=== PATIENT | female | born 1935 | race Caucasian/White ===

== ENCOUNTER 2018-04-18 07:32 | Day surgery (SDC) | payer OTHER ==
[~2018-04-18] VITALS: Ht 162.6 cm; Wt 61.7 kg
[~2018-04-18 07:32] MED LIST: ACET500 PO; CETI5 PO; CHOL10002 PO; DOCU100 PO; ELIQUIS2.5 MG PO; ELIQUIS5 MG PO; GAVILAX17 GM PO; MAGNESIUM; METO25 PO; Magnesium Gluc500 MG PO; Metamucil Smooth1 EA PO; PROBIOTIC1 EAC1; PROBIOTIC1 EAC2 PO; Pyridium100 MG
[2018-04-19 04:51] LABS: BASOPHILS ABSOLUTE AUTO 0.01 K/mm3 (0.00-0.23); BASOPHILS PERCENT AUTO 0 % (0-2); EOSINOPHILS PERCENT AUTO 0 % (0-6); Hematocrit 36.7 % (33.0-51.0); Hemoglobin 12.2 g/dL (11.5-16.0); IMMATURE GRAN ABSOLUTE AUTO 0.08 K/mm3 (0.00-0.10); IMMATURE GRAN PERCENT AUTO 1 % (0-1); LYMPHOCYTES ABSOLUTE AUTO 0.88 K/mm3 (0.84-5.20); LYMPHOCYTES PERCENT AUTO 6 % (21-46); MONOCYTES ABSOLUTE AUTO 0.83 K/mm3 (0.16-1.47); MONOCYTES PERCENT AUTO 6 % (4-13); Mean Corpuscular HGB 30.6 pg (26.0-34.0); Mean Corpuscular HGB Conc 33.2 g/dL (31.5-36.5); Mean Platelet Volume 10.9 fL (9.1-12.4); NEUTROPHILS ABSOLUTE AUTO 12.94 K/mm3 (1.96-9.15); NEUTROPHILS PERCENT AUTO 88 % (41-73); Platelet Count 225 K/mm3 (150-400); RDW Coefficient Variation 12.3 % (11.7-14.2); RDW Standard Deviation 41.1 fL (35.1-46.3); Red Blood Cell Count 3.99 M/mm3 (3.80-5.20); White Blood Cell Count 14.74 K/mm3 (4.00-11.30)
[2018-04-19 05:00] LABS: Mean Corpuscular Volume 92 fL (80-100)
[2018-04-19] MEDS ORDERED: Colace100 MG PO (08:12)
== END 2018-04-19 09:56 | disposition home or self-care (01) ==
LOC: ORSCMMR 07:32 → ORD 08:45 → SURS 10:25 → ORSCMMR 04-19 09:56
PROVIDERS: Obstetrics & Gynecology
PROC: 0JQC0ZZ Repair Pelvic Region Subcutaneous Tissue and Fascia, Open Approach (ICD-10-PCS; principal; 2018-04-18 08:45)
PROC: 0UQF7ZZ Repair Cul-de-sac, Via Natural or Artificial Opening (ICD-10-PCS; principal; 2018-04-18 08:45)
DX: N81.6 Rectocele (principal); N81.5 Vaginal enterocele; I48.91 Unspecified atrial fibrillation; Z79.899 Other long term (current) drug therapy
CPT/HCPCS: 36415; 85025; J0171; J0690; J1100; J1885; J2001; J2250; J2405; J3010; J7120

== ENCOUNTER → 2018-05-05 | Outpatient (CLI) | payer OTHER ==
[~2018-05-05] MED LIST changes: +Colace100 MG PO
[2018-05-06 11:23] LABS: Candida species (DNA Probe) Negative (NEGATIVE); G. vaginalis (DNA Probe) Negative (NEGATIVE); T. vaginalis (DNA Probe) Negative (NEGATIVE)
== END | disposition home or self-care (01) ==
LOC: LAB 18:09 → LAB SHORT 18:09
PROVIDERS: Obstetrics & Gynecology
DX: N76.0 Acute vaginitis (principal)
CPT/HCPCS: 87480; 87510; 87660

== ENCOUNTER → 2019-04-11 | Outpatient (CLI) | payer OTHER | END | disposition home or self-care (01) | LOC: LAB SHORT 09:56 → PLD 09:56 | DX: L82.1 Other seborrheic keratosis (principal) | CPT/HCPCS: 88305 ==

== ENCOUNTER → 2019-05-08 | Outpatient (CLI) | payer OTHER | LOC: LAB 11:12 → LAB SHORT 11:12 | DX: N76.0 Acute vaginitis (principal) | CPT/HCPCS: 87070; 87077; 87186; 87205 ==

== ENCOUNTER → 2019-05-24 | Outpatient (CLI) | payer OTHER | END | disposition home or self-care (01) | LOC: LAB 08:47 → LAB SHORT 08:47 | DX: N76.0 Acute vaginitis (principal) | CPT/HCPCS: 87070; 87077; 87186; 87205 ==

== ENCOUNTER → 2019-07-07 | Outpatient (CLI) | payer OTHER | END | disposition home or self-care (01) | LOC: LAB SHORT 12:39 → LAB 12:39 | DX: N76.0 Acute vaginitis (principal) | CPT/HCPCS: 87070; 87205 ==

== ENCOUNTER → 2019-09-06 | Outpatient (CLI) | payer OTHER | END | disposition home or self-care (01) | LOC: LAB SHORT 16:20 → LAB 16:20 | DX: N76.1 Subacute and chronic vaginitis (principal) | CPT/HCPCS: 87070; 87205 ==

== ENCOUNTER → 2021-04-01 | Outpatient (CLI) | payer MEDICARE ==
[2021-04-02 12:05] LABS: Candida species (DNA Probe) Negative (NEGATIVE); G. vaginalis (DNA Probe) Negative (NEGATIVE); T. vaginalis (DNA Probe) Negative (NEGATIVE)
== END ==
LOC: LAB 11:36 → LAB SHORT 11:36
PROVIDERS: Obstetrics & Gynecology
DX: N76.1 Subacute and chronic vaginitis (principal); Z88.0 Allergy status to penicillin; Z88.2 Allergy status to sulfonamides; Z88.8 Allergy status to other drugs, medicaments and biological substances
CPT/HCPCS: 87070; 87077; 87186; 87205; 87480; 87510; 87660

== ENCOUNTER 2022-09-17 17:02 | Emergency (ER) | payer MEDICARE ==
[~2022-09-17] VITALS: Ht 162.6 cm; Wt 57.6 kg
[2022-09-17 17:55] LABS: BASOPHILS ABSOLUTE AUTO 0.04 K/mm3 (0.00-0.23); BASOPHILS PERCENT AUTO 0 % (0-2); EOSINOPHILS PERCENT AUTO 0 % (0-6); Hematocrit 46.7 % (33.0-51.0); Hemoglobin 15.4 g/dL (11.5-16.0); IMMATURE GRAN ABSOLUTE AUTO 0.04 K/mm3 (0.00-0.10); IMMATURE GRAN PERCENT AUTO 0 % (0-1); LYMPHOCYTES ABSOLUTE AUTO 1.19 K/mm3 (0.84-5.20); LYMPHOCYTES PERCENT AUTO 8 % (21-46); MONOCYTES ABSOLUTE AUTO 1.47 K/mm3 (0.16-1.47); MONOCYTES PERCENT AUTO 10 % (4-13); Mean Corpuscular HGB 30.6 pg (26.0-34.0); Mean Corpuscular Volume 93 fL (80-100); Mean Platelet Volume 10.5 fL (9.1-12.4); NEUTROPHILS ABSOLUTE AUTO 11.42 K/mm3 (1.96-9.15); NEUTROPHILS PERCENT AUTO 81 % (41-73); Platelet Count 268 K/mm3 (150-400); RDW Coefficient Variation 12.4 % (11.7-14.2); RDW Standard Deviation 42.7 fL (35.1-46.3); Red Blood Cell Count 5.03 M/mm3 (3.80-5.20); White Blood Cell Count 14.16 K/mm3 (4.00-11.30)
[2022-09-17 18:42] LABS: Albumin, Blood 3.2 g/dL (3.4-5.0); Albumin/Globulin Ratio 0.8 (0.8-1.8); Bilirubin, Total 0.9 mg/dL (0.1-1.0); Bun/Creatinine Ratio 28.8 (12.0-20.0); Calcium, Blood 9.8 mg/dL (8.5-10.1); Creatinine, Blood 0.76 mg/dL (0.40-1.00); Magnesium, Blood 2.3 mg/dL (1.6-2.4); Potassium, Blood 4.1 mmol/L (3.5-5.5); Total Protein, Blood 7.2 g/dL (6.4-8.2)
[2022-09-17 22:54] LABS: Source, Urine Clean Catch
[2022-09-17 22:59] LABS: Bilirubin, Urine Neg (Neg); Blood, Urine 1+ (Neg); Glucose Qualitative, Urine Neg (Neg); Ketones, Urine 3+ (Neg); Leukocyte Esterase, Urine Neg (Neg); Nitrite, Urine Neg (Neg); Protein, Urine 1+ (Neg); Urobilinogen, Urine NORM (Normal)
[2022-09-17] MEDS ORDERED: BETAPACE AF PO (23:00)
[2022-09-17] MEDS ORDERED: DILTIAZEM 24HR120 M4 PO (23:01)
[2022-09-17 23:28] LABS: Appearance, Urine Clear (Clear); Color, Urine Yellow (P-Yellow); Red Blood Cells, Urine 0-2 /hpf (0-2); White Blood Cells, Urine 0-2 /hpf (0-5)
[2022-09-17 23:29] LABS: Amorphous Light (0-Heavy); Bacteria Few /hpf; Mucus Mod (0-Heavy); Squamous Epithelial Cells Few /hpf (Few)
[2022-09-18] MEDS ORDERED: DOXY100 PO (00:49)
[2022-09-18 01:34] LABS: Influenza A, PCR NEGATIVE (NEGATIVE); Influenza B, PCR NEGATIVE (NEGATIVE); Resp Syncytial Virus, PCR NEGATIVE (NEGATIVE); SARS-Cov-2 (COVID-19) PCR, MMC NEGATIVE (NEGATIVE)
== END 2022-09-18 01:17 | disposition home or self-care (01) ==
LOC: ER 17:02
PROVIDERS: Physician Assistant; Student in an Organized Health Care Education/Training Program
DX: I48.0 Paroxysmal atrial fibrillation (principal); R91.8 Other nonspecific abnormal finding of lung field; Z88.0 Allergy status to penicillin; Z88.6 Allergy status to analgesic agent; Z88.8 Allergy status to other drugs, medicaments and biological substances; Z88.1 Allergy status to other antibiotic agents; Z79.899 Other long term (current) drug therapy; Z79.01 Long term (current) use of anticoagulants; Z95.0 Presence of cardiac pacemaker
CPT/HCPCS: 0241U; 36415; 71045; 80053; 81001; 83690; 83735; 85025; 93005; 93010; A9270; J2405; J7030

== ENCOUNTER 2025-01-09 15:30 | Observation (INO) | payer OTHER ==
[~2025-01-09] VITALS: Ht 165.1 cm; Wt 68.1 kg
[~2025-01-09 15:30] MED LIST changes: +BETAPACE AF PO; +DILTIAZEM 24HR120 M4 PO; +DOXY100 PO
[2025-01-09] MEDS ORDERED: Ondansetron HCl 2 MG / ML 2ML Vial IV ONE (15:50)
[2025-01-09 16:01] LABS: BASOPHILS ABSOLUTE AUTO 0.05 K/mm3 (0.00-0.23); BASOPHILS PERCENT AUTO 1 % (0-2); EOSINOPHILS ABSOLUTE AUTO 0.01 K/mm3 (0.00-0.68); EOSINOPHILS PERCENT AUTO 0 % (0-6); Hematocrit 45.2 % (33.0-51.0); Hemoglobin 14.9 g/dL (11.5-16.0); IMMATURE GRAN ABSOLUTE AUTO 0.04 K/mm3 (0.00-0.10); IMMATURE GRAN PERCENT AUTO 0 % (0-1); LYMPHOCYTES PERCENT AUTO 11 % (21-46); MONOCYTES ABSOLUTE AUTO 1.33 K/mm3 (0.16-1.47); MONOCYTES PERCENT AUTO 14 % (4-13); Mean Corpuscular Volume 94 fL (80-100); Mean Platelet Volume 9.8 fL (9.1-12.4); NEUTROPHILS ABSOLUTE AUTO 6.82 K/mm3 (1.96-9.15); NEUTROPHILS PERCENT AUTO 74 % (41-73); Platelet Count 237 K/mm3 (150-400); RDW Coefficient Variation 13.1 % (11.7-14.2); RDW Standard Deviation 45.6 fL (35.1-46.3); White Blood Cell Count 9.25 K/mm3 (4.00-11.30)
[2025-01-09 16:22] LABS: Albumin, Blood 3.4 g/dL (3.4-5.0); Albumin/Globulin Ratio 0.9 (0.8-1.8); Bilirubin, Total 0.4 mg/dL (0.1-1.0); Bun/Creatinine Ratio 26.9 (12.0-20.0); Calcium, Blood 9.9 mg/dL (8.5-10.1); Creatinine, Blood 0.74 mg/dL (0.40-1.00); Globulin, Blood 3.8 g/dL (2.2-4.0); Potassium, Blood 4.2 mmol/L (3.5-5.5); Total Protein, Blood 7.2 g/dL (6.4-8.2)
[2025-01-09] MEDS ORDERED: Acetaminophen 325 MG TABLET PO ONE (16:40)
[2025-01-09 20:26] LABS: Source, Urine Clean Catch
[2025-01-09 20:28] LABS: Appearance, Urine Clear (Clear); Bilirubin, Urine Neg (Neg); Blood, Urine 2+ (Neg); Color, Urine Yellow (P-Yellow); Glucose Qualitative, Urine Neg (Neg); Ketones, Urine 3+ (Neg); Leukocyte Esterase, Urine Neg (Neg); Nitrite, Urine Neg (Neg); Protein, Urine 1+ (Neg); Urobilinogen, Urine NORM (Normal)
[2025-01-09 20:47] LABS: Bacteria Few /hpf; Mucus Light (0-Heavy); Squamous Epithelial Cells Mod /hpf (Few); White Blood Cells, Urine 0-2 /hpf (0-5)
[2025-01-09 22:01] LABS: CORONAVIRUS COVID-19 AG Negative (NEGATIVE); INFLUENZA A AG Negative (NEGATIVE); INFLUENZA B AG Negative (NEGATIVE)
[2025-01-09] MEDS ORDERED: Ondansetron HCl 2 MG / ML 2ML Vial IV PRN (22:10)
[2025-01-09] MEDS ORDERED: FLU VACC TS2024-25(6MOS UP)/PF 45 MCG/0.5 ML SYRINGE IM ONE (22:10)
[2025-01-09] MEDS ORDERED: Acetaminophen 325 MG TABLET PO PRN (22:10)
[2025-01-10 01:31] VITALS: BP 139/73
--- NOTE | 2025-01-10 02:03 | NUR ---
ADMIT NOTE 89 YR OLD FEMALE ADMITTED TO FLOOR FROM THE ED WITH DX OF ACUTE RESP FAILURE. CHART HX REPORTED FALL AT HOME (AND PT REPORTED IT HAPPENED A FEW DAYS AGO). AND SHE STRUCK HER HEAD, CT IN ED REPORTED NO NEW INTRACRANIAL ABNORMALITY NOTED. (SEE SAID DOCUMENTATION IN CHART). NEURO CHECK, PUPILS EQUAL. TALENT SCOUT EQUAL AND STRONG. DORSI AND PLANTAR FLEXION - LEFT SLIGHTLY WEAKER. PT DENIES LOSS OF FEELING. VSS. NOTE SOME DIMINISHED LUNG SOUNDS IN ONE OF THE LOBES PER AUSCULTATION, OTHERWISE APPEAR CLEAR. 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 MD TO EVALUATE. ORINETED TO USE OF CALL LIGHT, CALL LIGHT IN REACH. RAILS UP X 3 AND BED INM LOW POSITION FOR SAFETY. PT VOICED WANTS TO SLEEP, WILL MONITOR
--- NOTE | 2025-01-10 04:16 | NUR ---
CORPORATE TUTOR SUMMARY VSS. WAS ADMITTED EARLIER THIS SHIFT WITH DX OF ACUTE RESP FAILURE AFTER REPORTED N/V AND DIFFICULTY AMBULATING AT HOME, FURTHER INFO WAS NOTED PT HAD FALLEN AT HOME SOME 2 DAYS AGO PER PT STATEMENT. SHE REPORTED HIT HER HEAD. CT WAS DONE WITH NO NOTED ACUTE FINDINGS - SEE CT REPORT. NEURO CHECK ON FLOOR WAS WNL WITH NOTED WEAKER LEFT LEG COMPARED TO RIGHT. DENIED LOSS OF FEELING. O2 PER NC. LOWER LOBES CLEAR PER AUSCULTATION. HAS BEEN RESTING QUIETLY WITH FEW INTERRUPTOINS. ABLE TO REPOSITION SELF IN BED WITHOUT ASSIST, RAILS UP X 2 AND CALL LIGHT IN REACH FOR SAFETY. WILL CONT TO MONITOR
[2025-01-10 04:40] VITALS: BP 127/62
[2025-01-10 05:54] LABS: BASOPHILS ABSOLUTE AUTO 0.03 K/mm3 (0.00-0.23); BASOPHILS PERCENT AUTO 0 % (0-2); EOSINOPHILS ABSOLUTE AUTO 0.01 K/mm3 (0.00-0.68); EOSINOPHILS PERCENT AUTO 0 % (0-6); Hemoglobin 14.4 g/dL (11.5-16.0); IMMATURE GRAN ABSOLUTE AUTO 0.02 K/mm3 (0.00-0.10); IMMATURE GRAN PERCENT AUTO 0 % (0-1); LYMPHOCYTES ABSOLUTE AUTO 0.96 K/mm3 (0.84-5.20); LYMPHOCYTES PERCENT AUTO 12 % (21-46); MONOCYTES PERCENT AUTO 18 % (4-13); Mean Corpuscular HGB 31.3 pg (26.0-34.0); Mean Corpuscular HGB Conc 32.7 g/dL (31.5-36.5); Mean Corpuscular Volume 96 fL (80-100); Mean Platelet Volume 9.8 fL (9.1-12.4); NEUTROPHILS ABSOLUTE AUTO 5.71 K/mm3 (1.96-9.15); NEUTROPHILS PERCENT AUTO 69 % (41-73); Platelet Count 208 K/mm3 (150-400); RDW Standard Deviation 45.6 fL (35.1-46.3); White Blood Cell Count 8.23 K/mm3 (4.00-11.30)
[2025-01-10 06:18] LABS: Albumin, Blood 2.9 g/dL (3.4-5.0); Albumin/Globulin Ratio 0.9 (0.8-1.8); Bilirubin, Total 0.4 mg/dL (0.1-1.0); Bun/Creatinine Ratio 20.4 (12.0-20.0); Creatinine, Blood 0.84 mg/dL (0.40-1.00); Globulin, Blood 3.3 g/dL (2.2-4.0); Magnesium, Blood 2.2 mg/dL (1.6-2.4); Total Protein, Blood 6.2 g/dL (6.4-8.2)
[2025-01-10 07:11] VITALS: BP 145/105
[2025-01-10] MEDS ORDERED: Apixaban 5 MG Tab PO SCH (09:00)
[2025-01-10] MEDS ORDERED: dilTIAZem HCL 120 MG CAP.CD PO SCH ×3 (09:00)
[2025-01-10] MEDS ORDERED: Cholecalciferol 1000 Unit Tablet (=25MCG) PO SCH (09:00)
[2025-01-10] MEDS ORDERED: Sotalol HCl 80 MG Tab PO SCH ×2 (09:00)
[2025-01-10] MEDS ORDERED: HYDROcodone 5-APAP 325 TAB PO PRN (11:15)
[2025-01-10 15:18] VITALS: BP 128/72
--- NOTE | 2025-01-10 18:56 | NUR ---
DISCHARGE PT AOX4, COOPERATIVE, ABLE TO MAKE NEDS KNOWN. IV DC'D BY THIS RN. TELE DC'D. PT WAS TRANSPORTED VIA WHEELCHAIR TO PT ENTRANCE FOR FAMILY MEMBER TRANSPORT. TRANSFERRED INTO CAR WITHOUT ANY ACUTE EVENTS TAKING PLACE. THE RN WENT OVER ALL DC PAPERWORK WITH PT AND FAMILY MEMBER. PT TOOK DC PAPERWORK AND BELONGINGS DOWN TO CAR DURING DISCHARGE.
== END 2025-01-10 18:45 | disposition home or self-care (01) ==
LOC: ER 15:30 → MEDS 15:31 → ERHOLD 15:31 → MEDS 01-10 01:22
PROVIDERS: Student in an Organized Health Care Education/Training Program; ADMIT Student in an Organized Health Care Education/Training Program
DX: J96.01 Acute respiratory failure with hypoxia (principal); R53.1 Weakness; S09.90XA Unspecified injury of head, initial encounter; W18.30XA Fall on same level, unspecified, initial encounter; R76.8 Other specified abnormal immunological findings in serum; I11.9 Hypertensive heart disease without heart failure; I48.0 Paroxysmal atrial fibrillation; G89.29 Other chronic pain; M54.9 Dorsalgia, unspecified; Z79.01 Long term (current) use of anticoagulants; Z79.899 Other long term (current) drug therapy; Z95.0 Presence of cardiac pacemaker; Z85.3 Personal history of malignant neoplasm of breast; Z88.0 Allergy status to penicillin; Z88.6 Allergy status to analgesic agent; Z88.1 Allergy status to other antibiotic agents; Z88.8 Allergy status to other drugs, medicaments and biological substances; Z90.49 Acquired absence of other specified parts of digestive tract
CPT/HCPCS: 36415; 70450; 71045; 72070; 72100; 80053; 81001; 83735; 84145; 85025; 86850; 86900; 86901; 87428-QW; 93005; 93010; 93306; 94760; 94762; 96374; 97161; 97165; 97530; 97535; 99285-25; A9270; G0378; J2405